=== PATIENT | male | born 1960 | race African-American/Black ===

== ENCOUNTER 2021-07-28 18:09 | Emergency (ER) | payer MEDICARE, OTHER ==
[~2021-07-28] VITALS: Ht 180.3 cm; Wt 107.0 kg
--- NOTE | 2021-07-28 19:13 | PHYS DOC ---
Adult General Chief Complaint Chief Complaint: MULTIPLE COMPLAINTS HPI HPI Patient is a 61-year-old male with a past medical history of hypertension, hypercholesteremia, BPH, bradycardia with pacemaker placement and some degree of heart failure who presents with a chief complaint of bilateral lower extremity leg swelling and decreased urine output the last couple of days. Denies any recent traumas, travels, illnesses, fevers, chest pain, shortness of breath, dyspnea on exertion, orthopnea, PND. Denies any abdominal pain, nausea, vomiting, diarrhea. Denies any hematuria or blood in the stool. States he is taking all his medications as prescribed. Denies any known ill contacts. Has a normal stress test couple weeks ago. Review of Systems Review of Systems Review of systems otherwise unremarkable except noted in HPI Physical Exam Physical Exam Constitutional: Well developed, well nourished, no acute distress, non-toxic appearance. [] HENT: Normocephalic, atraumatic, bilateral external ears normal, oropharynx moist, no oral exudates, nose normal. [] Eyes: conjunctiva normal, no discharge. [] Neck: Normal range of motion, no tenderness, supple, no stridor. [] Cardiovascular:Heart rate regular rhythm, no murmur [] Lungs & Thorax: Bilateral breath sounds clear to auscultation [] Abdomen: soft, no tenderness, no masses, no pulsatile masses. [] Skin: Warm, dry, no erythema, no rash. [] Back: No tenderness, no CVA tenderness. [] Extremities: Neurovascular exam intact. 1+ pitting bilateral lower extremity edema without any erythema or tenderness. Neurologic: Alert and oriented X 3, normal motor function, normal sensory function, no focal deficits noted. [] Psychologic: Affect normal, judgement normal, mood normal. [] EKG EKG [] Radiology/Procedures Radiology/Procedures [] Heart Score C/O Chest Pain: No Risk Factors: Risk Factors: DM, Current or recent (<one month) smoker, HTN, HLP, family history of CAD, obesity. Risk Scores: Risk Factors: DM, Current or recent (<one month) smoker, HTN, HLP, family history of CAD, obesity. Course & Med Decision Making Course & Med Decision Making Patient is a 61-year-old male who presents with bilateral lower extremity edema and decreased urine output Vital signs notable for hypertension. Physical exam noted above. EKG with a normal rate, normal rhythm, no STEMI. Troponin normal. Chest x-ray with a tiny pleural effusion with some compressive atelectasis Laboratory analysis not concerning. Discussed all findings with patient. Discussed differential diagnosis. Advised to follow-up first thing in the morning with primary care physician update on ED visit and set up a follow-up as soon as he can Give strict return precautions to the ED. Patient grateful, verbalized understanding and agreed with plan of discharge. [] Dragon Disclaimer Dragon Disclaimer This electronic medical record was generated, in whole or in part, using a voice recognition dictation system. Departure Departure: Impression: Primary Impression: Bilateral edema of lower extremity Additional Impression: Pleural effusion Disposition: HOME / SELF CARE / HOMELESS Condition: STABLE Referrals: OLIVA UMANA MD (PCP) Patient Instructions: Peripheral Edema, Pleural Effusion Additional Instructions: Thank you for coming into the emergency department tonight and allowing us to take care of you. Please read the attached information carefully to go over things we discussed. Please take all your medications as prescribed. It is very important that you follow-up in the morning with your primary care physician and/or your process line operator to update on your ED visit and set up a follow-up as soon as possible. Please come back to the emergency department immediately with new or concerning symptoms as we discussed. Problem Qualifiers LORENZO WINTERS MD Jul 28, 2021 19:13
[2021-07-28 19:46] LABS: BACTERIA,URINE 0 /HPF (0-FEW); CLARITY,URINE CLEAR; COLOR,URINE YELLOW; GLUCOSE,URINE NEG (NEG); NITRITE,URINE NEG (NEG); RBC,URINE 0 /HPF (0-2); SQUAMOUS EPITHELIAL CELL,UR OCC /LPF; UROBILINOGEN,URINE 0.2 mg/dL (0.2 mg/dL); WBC,URINE OCC /HPF (0-4)
--- NOTE | 2021-07-28 19:55 | RAD ---
XR CHEST 1V 07/28/2021 7:02 PM INDICATION: Cardiac workup COMPARISON: None available TECHNIQUE: Portable frontal view of the chest is provided. FINDINGS: The cardiomediastinal silhouette is within normal limits. Lungs are clear. Left chest wall cardiac de vice is identified with leads projecting over the right atrium and right ventricle. Trace left pleural effusion. There is left basilar subsegmental atelectasis versus infiltrate. No sig nificant pulmonary vascular congestion or pneumothorax. No suspicious osseous abnormality. IMPRESSION: Trace of pleural effusion with adjacent compressive atelectasis versus infiltrate. Electronically signed by: Savi Fatima MD (07/28/2021 7:53 PM) B[place]ED[place]
[2021-07-28 20:53] LABS: BASO # 0.1 x10^3/uL (0.0-0.2); BASO % 1 % (0-3); CALCIUM 8.8 mg/dL (8.5-10.1); CREATININE 1.2 mg/dL (0.7-1.3); EOS # 0.2 x10^3/uL (0.0-0.7); EOS % 4 % (0-3); GFR 74.7; HEMOGLOBIN 14.2 g/dL (13.0-17.5); LYMPH # 1.7 x10^3/uL (1.0-4.8); LYMPH % 29 % (24-48); MEAN CORPUSCULAR HEMOGLOBIN 32 pg (25-35); MEAN CORPUSCULAR HGB CONC 34 g/dL (31-37); MEAN CORPUSCULAR VOLUME 96 fL (79-100); MONO # 0.3 x10^3/uL (0.0-1.1); MONO % 6 % (0-9); NEUT # 3.6 x10^3uL (1.8-7.7); NEUT % 61 % (31-73); PLATELET COUNT 164 x10^3/uL (140-400); POTASSIUM 3.6 mmol/L (3.5-5.1); RED BLOOD COUNT 4.39 x10^6/uL (4.30-5.70); RED CELL DISTRIBUTION WIDTH 14.7 % (11.5-14.5); WHITE BLOOD COUNT 5.9 x10^3/uL (4.0-11.0)
[2021-07-28 20:59] LABS: ALBUMIN 3.4 g/dL (3.4-5.0); ALBUMIN/GLOBULIN RATIO 1.2 (1.0-1.7); MAGNESIUM 2.1 mg/dL (1.8-2.4); TOTAL BILIRUBIN 0.5 mg/dL (0.2-1.0); TOTAL PROTEIN 6.3 g/dL (6.4-8.2)
[2021-07-28 21:36] VITALS: BP 143/75
--- NOTE | 2021-07-29 02:32 | EKG ---
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
== END 2021-07-28 22:00 | disposition home or self-care (01) ==
LOC: ER 18:09
DX: J90 Pleural effusion, not elsewhere classified (principal); R60.0 Localized edema; E78.00 Pure hypercholesterolemia, unspecified; I11.0 Hypertensive heart disease with heart failure; I50.9 Heart failure, unspecified
CPT/HCPCS: 36415; 71045; 80053; 81001; 83735; 83880; 84484; 85025; 93005; 99284